=== PATIENT | male | born 1970 | race Caucasian/White ===

== ENCOUNTER 2017-12-29 10:49 | Emergency (ER) | payer MEDICAID ==
[2017-12-29] MEDS: IBUPROFEN 600 MG TAB PO (13:32)
[2017-12-29] MEDS: HYDROCODONE/APAP (5/325) TAB PO (13:33)
== END 2017-12-29 14:22 | disposition home or self-care (01) ==
LOC: FTE 10:49
DX: S29.9XXA Unspecified injury of thorax, initial encounter (principal); R07.81 Pleurodynia; X58.XXXA Exposure to other specified factors, initial encounter; Y92.9 Unspecified place or not applicable
CPT/HCPCS: 71100; 93005; 99284-25